=== PATIENT | male | born 1965 | race Caucasian/White ===

== ENCOUNTER 2017-06-19 17:23 | Emergency (ER) | payer MEDICAID ==
[~2017-06-19] VITALS: Ht 172.7 cm; Wt 80.0 kg
[2017-06-19] MEDS ORDERED: SODIUM CHLORIDE 0.9% 1,000 ML IV ONE (18:14)
[2017-06-19] MEDS ORDERED: CEFAZOLIN 1000MG PREMIX 50 ML IV ONE (18:15)
[2017-06-19] MEDS ORDERED: ONDANSETRON HCL 4MG/2ML VIAL IV STA (18:29)
[2017-06-19] MEDS ORDERED: MORPHINE SULFATE 4 MG/ML CPJ (NOT FOR IM USE) IV STA (18:29)
[2017-06-19 18:41] LABS: BASOPHILS % 1.5 % (0.0-2.0); EOSINOPHILS % 0.9 % (0.0-5.0); HEMATOCRIT. 44.4 % (42.0-52.0); HEMOGLOBIN. 15.5 g/dL (14.0-18.0); LYMPHOCYTES % 42.9 % (20.0-50.0); MEAN CORPUSCULAR HEMOGLOBIN 32.7 pg (28.0-32.0); MEAN PLATELET VOLUME 7.7 fl (7.4-10.4); MONOCYTES % 4.2 % (2.0-8.0); NEUTROPHILS % 50.5 % (40.0-76.0); PLATELET 284 x1000/uL (130-400); RED BLOOD CELL COUNT 4.73 mill/uL (4.7-6.1); RED CELL DISTRIBUTION WIDTH 14.2 % (11.6-14.6)
[2017-06-19 18:43] LABS: CHLORIDE 107 mEq/L (98-107)
[2017-06-19 18:48] LABS: ETHANOL BLOOD 258 mg/dL
[2017-06-19 20:40] VITALS: BP 135/92
== END 2017-06-19 21:19 | disposition short-term general hospital (02) ==
LOC: ER 17:34
DX: S68.120A Partial traumatic metacarpophalangeal amputation of right index finger, initial encounter (principal); W23.1XXA Caught, crushed, jammed, or pinched between stationary objects, initial encounter; Y93.89 Activity, other specified; Y92.89 Other specified places as the place of occurrence of the external cause; F10.20 Alcohol dependence, uncomplicated; Y90.8 Blood alcohol level of 240 mg/100 ml or more; F17.210 Nicotine dependence, cigarettes, uncomplicated
CPT/HCPCS: 36415; 73130; 80053; 85025; 96365; 96375; 99285; G0482; J2270; J2405; J7030; Z7610